=== PATIENT | male | born 1925 | race Caucasian/White ===

== ENCOUNTER 2016-05-30 09:12 | Observation (INO) | payer MEDICARE, BC ==
[~2016-05-30 09:12] MED LIST: ADULT LOW DOSE81 MG; AMBIEN10 M1 PO; AMBIEN10 MG; AZITHROMYCIN500 M3 PO; CALCIUM 600 W/V1 TAB; CELEBREX200 MG; CHLORTABS PO; EQL FISH OIL 1,1 CAP; FAMOTIDINE20 MG; FLAX SEED OIL1000 MG PO; GLUCOSAMINE & C1 CAP; IRON1 TA1 PO; LOPRESSOR100 M1 PO; LORAZEPAM1 M1 PO; LORAZEPAM1 MG; METOPROLOL TAR100 MG; MOTRIN IB200 MG; MUCINEX600 M1 PO; MULTIVITAMIN1 CAP; OMEPRAZOLE40 M2 PO; PLAVIX75 M1 PO; PREDNISONE5 M2 PO; PROMETH-CODEIN 65 ML PO; SELENIMIN200 MCG; SENNA8.6 M1 PO; TERAZOSIN HCL10 M1 PO; TERAZOSIN10 MG; VITAMIN C; VITAMIN D400 UNIT; VITAMIN E400 UNI1; [UNRECOGNIZED DRUG - OTHER]
[2016-05-30 09:48] LABS: BASO % 0.5 % (0-2); EOS % 1.6 % (0-7); EOSINOPHIL ABSOLUTE COUNT 0.1 tho/cmm (0.0-0.7); HCT-HEMATOCRIT 42.7 % (36.0-53.5); HGB-HEMOGLOBIN 14.5 gm/dl (13.5-17.0); IMMATURE GRANULOCYTES ABSOLUTE 0.02 tho/cmm (0-0.03); IMMATURE GRANULOCYTES PERCENT 0.5 % (0-0.3); LYMPH % 18.9 % (20-45); LYMPH ABSOLUTE COUNT 0.7 tho/cmm (0.8-4.5); MCH (MEAN CORPUSCULAR HGB) 30.5 pg (28.0-32.0); MCV (MEAN CELL VOLUME) 89.7 fl (82.0-96.0); MEAN PLATELET VOLUME 11.2 cmc (9.4-12.4); MONO % 15.7 % (0-12); MONOCYTE ABSOLUTE COUNT 0.6 tho/cmm (0.0-1.2); NEUTROPHIL ABSOLUTE COUNT 2.4 tho/cmm (1.6-8.0); NEUTROPHIL-AUTOMATED 2.4 tho/cmm (1.6-8.0); NEUTROPHILS % 62.8 % (40-80); PLATELET COUNT 138 tho/cmm (150-450); RED BLOOD COUNT 4.76 mil/cmm (4.40-5.70); RED CELL DISTRIBUTION WIDTH 13.6 % (12.4-16.4); WHITE BLOOD COUNT 3.8 tho/cmm (4.0-10.0)
[2016-05-30 10:02] LABS: ANION GAP 14 mmol/L (0-20); BLOOD UREA NITROGEN 16 mg/dl (6-24); CALCIUM 9.2 mg/dl (8.5-10.5); CARBON DIOXIDE-VENOUS 24 mmol/L (22-32); CHLORIDE 105 mmol/l (96-110); CREATININE 1.49 mg/dl (0.60-1.30); GLUCOSE 123 mg/dL (70-110); MAGNESIUM 2.1 mg/dl (1.3-2.6); SODIUM 139 mmol/L (135-145); eGFR VALUE FOR BLACK 48 mL/Min
[2016-05-30 10:06] LABS: TSH-THYROID STIMULATING HORM. 1.02 uIU/ml (0.40-3.80)
[2016-06-01] MEDS ORDERED: ELIQUIS2.5 M1 PO (09:16)
== END 2016-06-01 11:10 ==
LOC: EDMED 09:12 → EMR2 13:03 → PCUA 13:35
PROVIDERS: Emergency Medicine; Nurse Practitioner Acute Care; ADMIT Internal Medicine
PROC: 5A2204Z Restoration of Cardiac Rhythm, Single (ICD-10-PCS; principal; 2016-05-31)
DX: I48.91 Unspecified atrial fibrillation (principal); I10 Essential (primary) hypertension; K21.9 Gastro-esophageal reflux disease without esophagitis; I27.2 Other secondary pulmonary hypertension; N17.9 Acute kidney failure, unspecified; I08.1 Rheumatic disorders of both mitral and tricuspid valves; Z86.73 Personal history of transient ischemic attack (TIA), and cerebral infarction without residual deficits; Z79.899 Other long term (current) drug therapy
CPT/HCPCS: G0378; J1650; J7030

== ENCOUNTER 2016-07-01 21:46 | Observation (INO) | payer MEDICARE, BC ==
[~2016-07-01 21:46] MED LIST changes: +ELIQUIS2.5 M1 PO
[2016-07-01] MEDS ORDERED: NEXIUM40 M1 PO (22:04)
[2016-07-01 22:20] LABS: BASO % 0.3 % (0-2); EOS % 0.4 % (0-7); HCT-HEMATOCRIT 42.8 % (36.0-53.5); HGB-HEMOGLOBIN 14.8 gm/dl (13.5-17.0); IMMATURE GRANULOCYTES ABSOLUTE 0.04 tho/cmm (0-0.03); IMMATURE GRANULOCYTES PERCENT 0.4 % (0-0.3); LYMPH % 10.8 % (20-45); LYMPH ABSOLUTE COUNT 1.1 tho/cmm (0.8-4.5); MCH (MEAN CORPUSCULAR HGB) 30.5 pg (28.0-32.0); MCHC MEAN CORPUSCULAR HGB CONC 34.6 % (32.0-36.0); MCV (MEAN CELL VOLUME) 88.1 fl (82.0-96.0); MEAN PLATELET VOLUME 11.1 cmc (9.4-12.4); MONO % 13.7 % (0-12); MONOCYTE ABSOLUTE COUNT 1.4 tho/cmm (0.0-1.2); NEUTROPHIL ABSOLUTE COUNT 7.8 tho/cmm (1.6-8.0); NEUTROPHIL-AUTOMATED 7.8 tho/cmm (1.6-8.0); NEUTROPHILS % 74.4 % (40-80); PLATELET COUNT 137 tho/cmm (150-450); RED BLOOD COUNT 4.86 mil/cmm (4.40-5.70); RED CELL DISTRIBUTION WIDTH 13.2 % (12.4-16.4); WHITE BLOOD COUNT 10.5 tho/cmm (4.0-10.0)
[2016-07-01 22:32] LABS: ANION GAP 14 mmol/L (0-20); BLOOD UREA NITROGEN 26 mg/dl (6-24); CALCIUM 9.3 mg/dl (8.5-10.5); CARBON DIOXIDE-VENOUS 23 mmol/L (22-32); CHLORIDE 103 mmol/l (96-110); CREATININE 1.32 mg/dl (0.60-1.30); GLUCOSE 110 mg/dL (70-110); MAGNESIUM 1.9 mg/dl (1.8-2.6); SODIUM 136 mmol/L (135-145); eGFR VALUE FOR BLACK 55 mL/Min
[2016-07-01 22:36] LABS: PROTHROMBIN TIME 11.2 SECONDS (9.0-13.6)
[2016-07-01 22:38] LABS: POTASSIUM 4.3 mmol/L (3.7-5.1)
[2016-07-02 05:51] LABS: ANION GAP 12 mmol/L (0-20); BLOOD UREA NITROGEN 28 mg/dl (6-24); CALCIUM 8.5 mg/dl (8.5-10.5); CARBON DIOXIDE-VENOUS 25 mmol/L (22-32); CHLORIDE 106 mmol/l (96-110); CREATININE 1.57 mg/dl (0.60-1.30); GLUCOSE 109 mg/dL (70-110); POTASSIUM 4.4 mmol/L (3.7-5.1); SODIUM 139 mmol/L (135-145); eGFR VALUE FOR BLACK 45 mL/Min
[2016-07-02 05:55] LABS: CHOLESTEROL 135 mg/dl (120-200); HDL CHOLESTEROL 57 mg/dl (40-60); LDL CHOLESTEROL 68 mg/dl (0-99); TRIGLYCERIDES 51 mg/dl (<149); VLDL 10 mg/dl (0-30)
[2016-07-02] MEDS ORDERED: FIORICET 50-301 EAC1 PO (12:23)
[2016-07-03] MEDS ORDERED: COLCRYS0.6 M1 PO (14:58)
== END 2016-07-03 15:20 | disposition home health service (06) ==
LOC: EDMED 21:46 → EMR2 07-02 02:20 → PCUA 07-02 02:23
PROVIDERS: Emergency Medicine; Nurse Practitioner Family; ADMIT Internal Medicine Cardiovascular Disease
DX: R07.81 Pleurodynia (principal); J90 Pleural effusion, not elsewhere classified; I48.91 Unspecified atrial fibrillation; I10 Essential (primary) hypertension; R42 Dizziness and giddiness; Z79.01 Long term (current) use of anticoagulants; Z79.899 Other long term (current) drug therapy; Z86.73 Personal history of transient ischemic attack (TIA), and cerebral infarction without residual deficits; Z96.653 Presence of artificial knee joint, bilateral; Z98.890 Other specified postprocedural states
CPT/HCPCS: A9500; C8929; G0378; J1885; J2270; J2405; J2785; J7030; Q9967